=== PATIENT | male | born 1945 | race Caucasian/White ===

== ENCOUNTER 2024-10-03 11:00 | Outpatient (OUT) | payer MEDICARE, OTHER, SELFPAY ==
--- OUTSIDE RECORDS SUMMARY | 2024-10-03 11:06 | XMS_ITS | Clinical Summary ---
Author Organization [facility] Address [address] [place] [address] Care Team Providers Care Consumer Affairs Director Name Role Phone Unavailable Primary Care Provider Unavailabl e Allergies No known active allergies Medications ALPHAGAN P 0.1 % drop INSTILL 1 DROP INTO LEFT EYE THREE TIMES DAILY 04/10/2022 Active levothyroxine (SYNTHROID) 200 mcg tablet Take 200 mcg by mouth once daily. 03/24/2022 Active PARoxetine (PAXIL) 20 mg tablet Take 0.5 tablets by mouth once daily. 08/21/2017 Active busPIRone (BUSPAR) 5 mg tablet Take 5 mg by mouth. 04/23/2022 Active atorvastatin (LIPITOR) 10 mg tablet 10 mg. 05/08/2022 Active sertraline (ZOLOFT) 100 mg tablet Take 100 mg by mouth once daily. 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.Jan 17, 2020 Entered By: JOSEE DENISE Comment: left total knee arthroplasty 05/24/19 Calcification of coronary artery 04/21/2022 Overview (04/21/2022): Aug 28, 2017 Entered By: JOSEE DENISE Comment: CT finding October Entered By: JOSEE DENISE Comment: previous stress test negative, asymptomatic Encounter for fitting and adjustment of hearing aid 04/21/2022 Gallstones 04/21/2022 Overview (04/21/2022): Aug 28, 2017 Entered By: JOSEE DENISE Comment: asymptomatic, demonstrated radiographically October 2016 Gastroenteritis 04/21/2022 Generalized anxiety disorder 04/21/2022 Hard of hearing 04/21/2022 History of adenomatous polyp of colon 04/21/2022 Overview (04/21/2022): Aug 28, 2017 Entered By: JOSEE DENISE Comment: 04/23/15 History of repair of rotator cuff 04/21/2022 Overview (04/21/2022): Aug 28, 2017 Entered By: JOSEE DENISE Comment: bilateral procedures 2008 Prediabetes 04/21/2022 Overview (04/21/2022): Jan 11, 2020 Entered By: JOSEE DENISE Comment: A1c 6.22 December 2019 Vitamin D deficiency 04/21/2022 Dizziness and giddiness 09/19/2021 Hypothyroidism 09/19/2021 Class 2 obesity 09/19/2021 Depressive disorder 08/20/2021 Social History Tobacco Use Types Packs/Day Years Used Date Smoking Tobacco: Never Smokeless Tobacco: Never Tobacco Cessation:Counseling Given: Not Answered Area Deprivation Index Answer Date Oziel rded National Score (1-100), lower number is lower ri sk 34 01/30/2023 State Score (1-10), lower number is lower risk 1 01/30/2023 Data from: https://www.neighborhoodatlas.medicine.[facility].edu/. Last address used for calculation [address] 01/30/2023 Sex and Gender Information Value Date Recorded Sex Assigned at Not on file Legal Sex Male 5:15 PM EST Gender Identity Not on file Sexual Orientation Not on file Last Filed Vital Signs Vital Sign Reading Time Taken Comments Blood Pressure 154/89 04/15/2022 5:12 AM EST Pulse 89 04/15/2022 5:12 AM EST Temperature 36.8 C (98.2 F) 04/15/2022 5:12 AM EST Respiratory Rate 18 04/15/2022 5:12 AM EST Oxygen Saturation 99% 04/15/2022 5:12 AM EST Inhaled Oxygen Concentration - - Weight 108.9 kg (240 lb) 04/14/2022 5:50 PM EST Height - - Body Mass Index - - Plan of Treatment Health Maintenance Due Date Last Done Comments Annual PCP Team Chronic Dise ase Visit 01/06/1963 Hepatitis C Screening 01/06/1963 LDL Cholesterol 01/06/1964 DTaP,Tdap,Td Vaccine (1 - Tdap) 12/27/2016 7 RSV Vaccine (1 - 1-dose 75+ series) 2021 Covid-19 Vaccine (5 - 2023-2 5 season) 2023 01/23/2021, 06/16/2020, 05/19/2020, Additional history exists Advance Directive Discussion 03/23/2024 Medicare Advantage Annual We llness Visit 03/23/2024 Influenza Vaccine (#1) 2024 2, 12/21/2021, 01/23/2021, Additional history exists Diabetes Screening 04/14/2025 04/14/2022 Shingrix Vaccine Completed 03/30/2020, , 01/10/2020 Pneumococcal Vaccine: 50+ Completed 03/27/2022 Procedures Procedure Name Priority Date/Time Associated Diagnosis Comments BASIC METABOLIC PANEL STAT 04/14/2022 9:20 PM EST from Last 3 Months or Most Recently Relevant to Health Maintenance Results * (ABNORMAL) BASIC METABOLIC PNL (04/14/2022 9:20 PM EST) Glucose 123(H) 74 - 99 mg/dL 04/14/2022 9:50 PM EST [facility] Comment: The [place] Diabetes Association (ADA) provides guidance for cutoff values for fasting glucose and random glucose. The ADA defines fasting as no caloric intake for at least 8 hours. Fasting plasma glucose results between 100 to 125 mg/dL indicate increased risk for diabetes (prediabetes). Fasting plasma glucose results greater than or equal to 126 mg/dL meet the criteria for diagnosis of diabetes. In the absence of unequivocal hyperglycemia, results should be confirmed by repeat testing. In a patient with classic symptoms of hyperglycemia or hyperglycemic crisis, random plasma glucose results greater than or equal to 200 mg/dL meet the criteria for diagnosis of diabetes. Reference: Standards of Medical Care in Diabetes 2016, [place] Diabetes Association. Diabetes Care. 2016.39(Suppl 1). BUN 21 9 - 24 mg/dL 04/14/2022 9:50 PM EST [facility] Creatinine 1.01 0.73 - 1.22 mg/dL 04/14/2022 9:50 PM EST [facility] Sodium 138 136 - 144 mmol/L 04/14/2022 9:50 PM EST [facility] Potassium 3.8 3.7 - 5.1 mmol/L 04/14/2022 9:50 PM EST [facility] Chloride 102 97 - 105 mmol/L 04/14/2022 9:50 PM EST [facility] CO2 25 22 - 30 mmol/L 04/14/2022 9:50 PM EST [facility] Anion Gap 11 9 - 18 mmol/L 04/14/2022 9:50 PM EST [facility] Calcium, Total 9.3 8.5 - 10.2 mg/dL 04/14/2022 9:50 PM EST [facility] Estimated Glomerular Filtration Rate 77 >=60 mL/min/1.7 3m 04/14/2022 9:50 PM EST [facility] Comment:Estimated Glomerular Filtration Rate (eGFR) is calculated using the 2020 CKD-EPI creatinine equation. This equation utilizes serum creatinine, sex, and age as parameters. The creatinine assay has traceable calibration to isotope dilution- mass spectrometry. Refer to KDIGO guidelines for clinical interpretation. In patients with unstable renal function, e.g. those with acute kidney injury, the eGFR may not accurately reflect actual GFR. Blood BLOOD SPECIMEN / Unknown Venipuncture / Unknown 04/14/2022 9:20 PM EST 04/14/2022 9:30 PM EST us Ariane Lindsey PA-C LABORATORY Final Resul t [facility] [address] [address], from Last 3 Months or Most Recently Relevant to Health Maintenance Insurance [employer] MEDICARE ADVANTAGE O
--- OUTSIDE RECORDS SUMMARY | 2024-10-03 11:06 | XMS_ITS | Encounter Summary ---
Author Organization [facility] Address [address] [place] [address] Care Team Providers Care Sheep And Wheat Farmer Name Role Phone Unavailable Primary Care Provider Unavailabl e Source Comments In the event this information is protected by the Federal Confidentiality of Alcohol and Drug AbusePatient Records regulations: The Federal rules restrict any use of the information to criminally investigate or prosecute any alcohol or drug abuse patient.[facility] Encounter Details Date Type Department Care Team (Late st Contact Info) Description 04/14/2022 Ophth Exam Ophthalmology 2021 [facility] [place], [place] [phone] Melinda Burnette MD [address] [place] [id number] Social History Tobacco Use Types Packs/Day Years Used Date Smoking Tobacco: Never Assessed Area Deprivation Index Answer Date Oziel rded National Score (1-100), lower number is lower ri sk 53 04/15/2022 State Score (1-10), lower number is lower risk N ot on file 04/15/2022 Data from: https://www.neighborhoodatlas.medicine.[facility].edu/. Last address used for calculation [address] 04/15/2022 Sex and Gender Information Value Date Recorded Sex Assigned at Not on file Legal Sex Male 5:15 PM EST Gender Identity Not on file Sexual Orientation Not on file documented as of this encounter Plan of Treatment Not on file documented as of this encounter Visit Diagnoses Not on filedocumented in this encounter Additional Health Concerns Infection Onset Date Last Indicated Resolved Time COVID-19 Rule-Out 04/14/2022 04/14/2022 04/14/2022 10:50 PM EST documented as of this encounter
--- OUTSIDE RECORDS SUMMARY | 2024-10-03 11:06 | XMS_ITS | Clinical Summary ---
Author Organization [facility] Address [address] [place] [phone] Phone Care Team Providers Care Household Worker Name Role Phone Unavailable Primary Care Provider Unavailabl e Social History Tobacco Use Types Packs/Day Years Used Date Smoking Tobacco: Never Assessed Sex and Gender Information Value Date Recorded Sex Assigned at Not on file Legal Sex Male 11:15 PM EDT Gender Identity Not on file Sexual Orientation Not on file Last Filed Vital Signs Vital Sign Reading Time Taken Comments Blood Pressure 128/88 11/05/2023 4:40 PM EDT Pulse 60 11/05/2023 4:40 PM EDT Temperature 37 C (98.6 F) 11/05/2023 4:40 PM EDT Respiratory Rate 18 11/05/2023 4:40 PM EDT Oxygen Saturation 98% 11/05/2023 4:40 PM EDT Inhaled Oxygen Concentration - - Weight 116 kg (255 lb 1.2 oz) 11/05/2023 4:40 PM EDT Height 175.3 cm (5' 9 ) 11/05/2023 4:40 PM EDT Body Mass Index 37.67 11/05/2023 4:40 PM EDT Plan of Treatment Health Maintenance Due Date Last Done Comments Lipid Panel 1945 Yearly Adult Physical 1945 Hepatitis C Screening 01/06/1963 Zoster Vaccines (1 of 2) 01/06/1996 RSV High Risk: (Elderly (60+) or Population) (1 - 1-dose 75+ series) 2021 COVID-19 Vaccine (4 - season) 2023 01/23/2021, 06/16/2020, 04/24/2020 Influenza Vaccine (#1) 2024 , 02/18/2023, 02/05/2022, Additional history exists DTaP/Tdap/Td Vaccines (2 - Td or Tdap) 05/08/2033 05/08/2023 Pneumococcal Vaccine Completed 03/27/2022 HIB Vaccines Aged Out No longer eligi ble based on patient's age to complete this topic HPV Vaccines (No Doses Required) Completed Hepatitis A Vaccines Aged Out No long er eligible based on patient's age to complete this topic Hepatitis B Vaccines Aged Out No long er eligible based on patient's age to complete this topic IPV Vaccines Aged Out No longer eligi ble based on patient's age to complete this topic Meningococcal Vaccine Aged Out No tatiana lara eligible based on patient's age to complete this topic Rotavirus Vaccines Aged Out No longer eligible based on patient's age to complete this topic
--- NOTE | 2024-10-03 11:08 | ECG_ITS ---
[facility] Test Date: 2024-10-03 Pat Name: ALINA JARAMILLO Department: Room: - Gender: Male Hospice/Home Health Aide: : 1945 Requested By: NICOLE BUSCH Order Number: [id number] Reading MD: IRENE GIL Measurements Intervals [place] Rate: 67 P: 49 IA: 162 QRS: -18 QRSD: 87 T: 62 QT: 390 QTc: 413 Interpretive Statements SINUS RHYTHM WITH FREQUENT SUPRAVENTRICULAR PREMATURE COMPLEXES ABNORMAL RHYTHM ECG No previous ECG available for comparison Electronically Signed On 10-05-2024 13:22:27 EDT by IRENE GIL
--- NOTE | 2024-10-03 12:14 | PM.PRESUREVA ---
History of Present Illness History of Present Illness Chief complaint: BPH with Obstruction Narrative: Mr. 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 He is scheduled for scheduled cystoscopy with TURP on October 13, [address] Rosas he reports nocturia and weak urinary stream and urgency Review of Systems ROS Narrative REVIEW OF SYSTEMS: Negative except as stated in HPI, ten or more systems reviewed. 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 and has hearing loss and does wear hearing aids Constitutional: No fever, chills, weakness ENT: No sore throat or epistaxis, Cardiovascular: No edema, chest pain, palpitations, or activity intolerance Respiratory: No shortness of breath, cough, or wheezing Musculoskeletal: No joint pain or swelling Gastrointestinal: No abdominal pain, constipation, diarrhea, or vomiting Genitourinary: No dysuria or hematuria, complaints of nocturia and urgency with urination as well as weakened urinary stream Neurological: No numbness, tingling, weakness, or headache Psychiatric: No mood changes [facility] Medical History (Updated 10/03/24 @ 12:07 by Marta Painting) Sleep apnea ?G47.30 - Sleep apnea, unspecified (ICD-10) Constipation ?K59.00 - Constipation, unspecified (ICD-10) Depression ?F32.A - Depression, unspecified (ICD-10) Hypothyroidism ?E03.9 - Hypothyroidism, unspecified (ICD-10) Hyperlipidemia ?E78.5 - Hyperlipidemia, unspecified (ICD-10) History of rectal polyps ?Z87.19 - Personal history of other diseases of the digestive system (ICD-10) Gastroenteritis ?K52.9 - Noninfective gastroenteritis and colitis, unspecified (ICD-10) ALISON (generalized anxiety disorder) ?F41.1 - Generalized anxiety disorder (ICD-10) Dizziness ?R42 - Dizziness and giddiness (ICD-10) Diabetes 1.5, managed as type 2 ?E13.9 - Other specified diabetes mellitus without complications (ICD-10) 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 - Leukoplakia of penis (ICD-10) BPH loc w urin obs/LUTS ?N40.1 - Benign prostatic hyperplasia with lower urinary tract symptoms (ICD-10) Blindness of both eyes ?H54.3 - Unqualified visual loss, both eyes (ICD-10) Bleeding per rectum ?K62.5 - Hemorrhage of anus and rectum (ICD-10) Arthritis ?M19.90 - Unspecified osteoarthritis, unspecified site (ICD-10) Surgical History (Updated 10/03/24 @ 11:21 by Marta Painting) Hx of total knee replacement ?Z96.659 - Presence of unspecified artificial knee joint (ICD-10) S/P left rotator cuff repair ?Z98.890 - Other specified postprocedural states (ICD-10) History of carpal tunnel release of both wrists ?Z98.890 - Other specified postprocedural states (ICD-10) H/O cataract extraction ?Z98.49 - Cataract extraction status, unspecified eye (ICD-10) H/O colonoscopy ?Z98.890 - Other specified postprocedural states (ICD-10) Family History (Updated 10/03/24 @ 11:34 by Marta Painting) Other Family history of cancer Family history of diabetes mellitus Family history of heart disease Family history of hypertension Family history of myocardial infarction Family history of stroke Social History (Updated 10/03/24 @ 11:31 by Marta Painting) Within the past year, how often did you have a drink containing alcohol: monthly or less Smoking status: Never smoker Non-prescribed substance use: cannabis (any form) Non-prescribed substance use details: edibles THC / anxiety 10mg CBG Previous occupational history: retired Highest level of school completed/degree received: Associate degree: occupational, technical, vocational program Meds Home Medications and Allergies Home Medications ?Medication ?Instructions ?Recorded ?Confirmed ?Type buspirone 5 mg tablet 10 mg PO DAILY 10/03/24 10/03/24 History levothyroxine 200 mcg tablet 200 mcg PO DAILY 10/03/24 10/03/24 History (Synthroid) sertraline 25 mg tablet 100 mg PO DAILY 10/03/24 10/03/24 History tamsulosin 0.4 mg capsule 0.4 mg PO DAILY 10/03/24 10/03/24 History trazodone 50 mg tablet 50 mg PO HS 10/03/24 10/03/24 History Allergies Allergy/AdvReac Type Severity Reaction Status Date / Time No Known Drug Allergies Allergy Verified 10/03/24 11:14 Exam Narrative Exam Narrative: Constitutional: Awake, alert, comfortable, well-appearing, nontoxic, interactive, vital signs as charted Head: Normocephalic, atraumatic Eyes: Conjunctiva and lids normal to inspection, pupils nonreactive ENT: naris patent, posterior oropharynx clear, oral mucosa moist Neck: Supple, normal appearance, normal range of motion, no meningeal signs, no lymphadenopathy no carotid bruit Respiratory: No respiratory distress, breath sounds clear Cardiovascular: Regularly irregular without murmur gallop or rub Abdomen: Nontender, normal bowel sounds, soft, no CVA tenderness Musculoskeletal: Normal gait, no swelling or edema Skin: No rashes or induration, no lesions, only visible skin inspected Neuro: No neurological deficits, normal sensation Psychiatric: Oriented ?3, normal affect Assessment and Plan Assessment and Plan (1) BPH loc w urin obs/LUTS: Plan Cystoscopy/TURP is scheduled on October 13, [address] Rosas
[2024-10-03 12:40] LABS: Hematocrit 43.4 % (42.0-54.0); Hemoglobin 14.5 g/dL (14.0-18.0); Immature Granulocytes Abs Auto 0.03 10^3/uL (0.00-0.03); Immature Granulocytes Pct Auto 0.4 % (0.0-0.5); Lymphocytes Absolute Auto 1.0 10^3/uL (1.2-3.8); Mean Corpuscular HGB Conc 33.4 g/dL (29.9-35.2); Mean Corpuscular Hemoglobin 31.2 pg (25.9-34.0); Mean Corpuscular Volume 93.3 fL (80.0-94.0); Platelet Count 175 10^3/uL (150-450); Red Blood Count 4.65 10^6/uL (4.70-6.10); White Blood Count 7.7 10^3/uL (4.0-11.0)
[2024-10-03 13:07] LABS: Anion Gap 11.4; Blood Urea Nitrogen 24.0 mg/dL (7.0-18.0); Calcium 9.1 mg/dL (8.5-10.1); Carbon Dioxide 29.9 mmol/L (21.0-32.0); Chloride 106 mmol/L (98-107); Estimated GFR (African America >60 (>=60 mL/min/1.73m^2); Estimated GFR (Non-African Ame >60 (>=60 mL/min/1.73m^2); Glucose 133 mg/dL (74-106); Potassium 4.3 mmol/L (3.5-5.1); Sodium 143 mmol/L (136-145)
[2024-10-03 13:10] LABS: INR 1.01; Partial Thromboplastin Time 29.6 sec (22.3-36.2); Prothrombin Time 10.7 sec (9.0-11.6)
== END 2024-10-03 11:01 | disposition home or self-care (01) ==
PROVIDERS: PCP Family Medicine; Visit Provider Urology
DX: Z01.810 Encounter for preprocedural cardiovascular examination (principal); Z01.812 Encounter for preprocedural laboratory examination; Z01.818 Encounter for other preprocedural examination; N40.1 Benign prostatic hyperplasia with lower urinary tract symptoms
CPT/HCPCS: 80048; 85025; 85610; 85730; 93005; G0463

== ENCOUNTER 2024-10-13 10:37 | Day surgery (SDC) | payer MEDICARE, OTHER, SELFPAY ==
[2024-10-03 11:32] VITALS: BP 131/83; PULSE 61; TEMP 36.4; O2SAT 97; BMI 28.0
[2024-10-13] VITALS (19 sets, daily range): BP systolic 129–159; BP diastolic 70–98; PULSE 52–79; TEMP 36–36.7; O2SAT 91–99; BMI 36.7
--- OUTSIDE RECORDS SUMMARY | 2024-10-13 10:40 | XMS_ITS | Encounter Summary ---
Author Organization [facility] Address [address] [place] [address] Care Team Providers Care Research Quality Assurance Specialist Name Role Phone Unavailable Primary Care Provider Unavailabl e Source Comments In the event this information is protected by the Federal Confidentiality of Alcohol and Drug AbusePatient Records regulations: The Federal rules restrict any use of the information to criminally investigate or prosecute any alcohol or drug abuse patient.[facility] Encounter Details Date Type Department Care Team (Late st Contact Info) Description 04/14/2022 Ophth Exam Ophthalmology 2021 [facility] [place], [place] [id number] Melinda Burnette MD [address] [place] [id number] Social History Tobacco Use Types Packs/Day Years Used Date Smoking Tobacco: Never Assessed Area Deprivation Index Answer Date Oziel rded National Score (1-100), lower number is lower ri sk 53 04/15/2022 State Score (1-10), lower number is lower risk N ot on file 04/15/2022 Data from: https://www.neighborhoodatlas.medicine.[facility].edu/. Last address used for calculation [address] [...]
--- OUTSIDE RECORDS SUMMARY | 2024-10-13 10:40 | XMS_ITS | Clinical Summary ---
Author Organization [facility] Address [address] [place] [address] Care Team Providers Care Library Page Name Role Phone Unavailable Primary Care Provider [...] is lower risk 1 01/30/2023 Data from: https://www.neighborhoodatlas.medicine.[facility].edu/. Last address used for calculation [address] 01/30/2023 Sex and Gender Information [...] - 99 mg/dL 04/14/2022 9:50 PM EST [facility] Comment: The [place] Diabetes Association (ADA) provides guidance for cutoff [...] Standards of Medical Care in Diabetes 2016, [place] Diabetes Association. Diabetes Care. 2016.39(Suppl 1). BUN 21 9 - 24 mg/dL 04/14/2022 9:50 PM EST [facility] Creatinine 1.01 0.73 - 1.22 mg/dL 04/14/2022 9:50 PM EST [facility] Sodium 138 136 - 144 mmol/L 04/14/2022 9:50 PM EST [facility] Potassium 3.8 3.7 - 5.1 mmol/L 04/14/2022 9:50 PM EST [facility] Chloride 102 97 - 105 mmol/L 04/14/2022 9:50 PM EST [facility] CO2 25 22 - 30 mmol/L 04/14/2022 9:50 PM EST [facility] Anion Gap 11 9 - 18 mmol/L 04/14/2022 9:50 PM EST [facility] Calcium, Total 9.3 8.5 - 10.2 mg/dL 04/14/2022 9:50 PM EST [facility] Estimated Glomerular Filtration Rate 77 >=60 mL/min/1.7 3m 04/14/2022 9:50 PM EST [facility] Comment:Estimated Glomerular Filtration Rate (eGFR) is [...] Ariane Lindsey PA-C LABORATORY Final Resul t [facility] [address] [address], from Last 3 Months or Most Recently Relevant to Health Maintenance Insurance [employer] MEDICARE ADVANTAGE O
--- OUTSIDE RECORDS SUMMARY | 2024-10-13 10:40 | XMS_ITS | Clinical Summary ---
Author Organization [facility] Address [address] [place] [phone] Phone Care Team Providers Care Garnett Mechanic Name Role Phone Unavailable Primary Care Provider [...] - 1-dose 75+ series) 2021 COVID-19 Vaccine ( - season) 2023 02/24/2022, 01/23/2021, 06/16/2020, Additional history exists Influenza Vaccine (#1) 2024 , 02/18/2023, 02/05/2022, Additional history exists DTaP/Tdap/Td Vaccines (2 - Td or Tdap) 05/08/2033 05/08/2023 Pneumococcal Vaccine Completed 05/08/2022, 03/27/19 HIB Vaccines Aged Out No longer eligi ble based on patient's age to complete this topic HPV Vaccines Aged Out No longer eligi ble based on patient's age to complete this topic Hepatitis A Vaccines Aged Out No long [...]
[2024-10-13] MEDS: LEVOFLOXACIN 500 MG/100 ML-D5W PREMIX 100 MG IV (12:38)
[2024-10-13] MEDS: HYDROMORPHONE HCL 0.5 MG/0.5 ML SYRINGE IV (14:09)
--- NOTE | 2024-10-13 14:15 | PM.URSON ---
Urology Surgery Operative Note Operative Note Procedure Date: 10/13/24 Time Out Performed: yes Pre-op Diagnosis: BPH with LUTS refractory to medications Post-op Diagnosis: same as pre-op Procedures performed: 1. Cystoscopy. 2. Transurethral resection of the prostate. Anesthesia: GETA Primary Surgeon: Hayden Rosas Complications: None Estimated blood loss (mL): 20 Findings: High median bar Specimens: Prostate chips Drains: 22 [place] three-way coud? Morrissey catheter in the bladder taped to CBI and traction Indications for Procedures: This gentleman has bladder outlet obstructive symptoms that are refractory to oral medications. He he is obstructed endoscopically. He is desirous for a TURP. He has signed an informed consent after all risks were explained. Some of these include bleeding, infection, anesthesia, urinary incontinence both temporary and permanent, erectile dysfunction, retrograde ejaculation and the possible need for further operations to name a few. Detailed description of Procedure: The patient was brought to the operating room and placed on the operating room table in the supine position. SCDs were placed on the lower extremities and turned on and functioning during the entire case. Timeout was done by all parties in the room. We all agreed upon the patient's identification and the planned procedures for this patient. Genn. anesthesia was then administered. The patient was then repositioned into the modified dorsal lithotomy position. All pressure points were satisfactorily padded. Genitalia were sterilely prepped and draped in usual fashion. I started by passing a 26 [place] Olympus resectoscope with a standard bipolar loop electrode per urethra and into the bladder. He had a very high median bar. The ureteral orifices were marked with a loop electrode. I then uniformly resected his median bar down to the bladder neck level. I then resected posteriorly from the bladder neck to the Veru level. The left and right lateral lobes were then taken down in a similar fashion as was the anterior tissue. I then opened up the apex carefully. The resection bed was coagulated. All of the prostate chips were removed with the Ilich evacuator and sent for permanent sections. Upon completion, with the scope at the apex the prostatic urethra and bladder neck were now wide open. There were no chips remaining in the bladder and no bleeding. The scope was then removed. A 22 [place] three-way coud? Morrissey was placed in the bladder. It was manually irrigated with a Joel syringe to verify accurate placement and clear out any clots. 30 cc of fluid was placed in the balloon. It was taped to traction and CBI was started. It irrigated to a light pink color. The anesthetic was then reversed. He was then transferred to a [facility] bed and wheeled to the PACU in stable condition. Urinary Catheter Management Urinary Catheter Management 3-way Urethral: Cath placed during this visit: no
[2024-10-13] MEDS: 0.9 % SODIUM CHLORIDE 1,000 ML 80 ML IV (15:05)
[2024-10-13] MEDS: SOLIFENACIN SUCCINATE 10 MG TABLET PO (15:05)
[2024-10-13] MEDS: CEFAZOLIN SODIUM/DEXTROSE,ISO 1 GM/50 ML PREMIX IV (18:09)
[2024-10-13] MEDS: SODIUM CHLORIDE IRRIG SOLUTION 3,000 ML 3000 ML IRR ×3 (18:09→22:10)
[2024-10-14] VITALS: BP 109/68; PULSE 77; TEMP 36.6; O2SAT 92
[2024-10-14] MEDS: TRAZODONE HCL 50 MG TABLET 25 MG PO (00:02)
[2024-10-14] MEDS: CEFAZOLIN SODIUM/DEXTROSE,ISO 1 GM/50 ML PREMIX IV (00:02)
[2024-10-14] MEDS: SODIUM CHLORIDE IRRIG SOLUTION 3,000 ML 3000 ML IRR ×2 (00:03→02:17)
[2024-10-14 04:00] VITALS: BP 129/66; PULSE 62; TEMP 36.3; O2SAT 92
[2024-10-14] MEDS: LEVOTHYROXINE SODIUM 100 MCG TABLET 200 MCG PO (05:41)
[2024-10-14 07:39] VITALS: BP 111/71; PULSE 60; TEMP 36.4; O2SAT 94
[2024-10-14] MEDS: SOLIFENACIN SUCCINATE 10 MG TABLET PO (08:15)
[2024-10-14] MEDS: BUSPIRONE HCL 10 MG TABLET PO (08:15)
[2024-10-14] MEDS: CHOLECALCIFEROL (VITAMIN D3) 125 MCG/5,000 UNIT TABLET PO (08:15)
[2024-10-14] MEDS: SERTRALINE HCL 100 MG TABLET 200 MG PO (08:15)
== END 2024-10-14 12:22 | disposition home or self-care (01) ==
LOC: SURGOUT 14:12 → MS 14:51
PROVIDERS: PCP Family Medicine; Visit Provider Urology
PROC: (CPT 52601; principal; 2024-10-13 11:30)
DX: N40.1 Benign prostatic hyperplasia with lower urinary tract symptoms (principal); E03.9 Hypothyroidism, unspecified; E78.5 Hyperlipidemia, unspecified; F32.A Depression, unspecified; M19.90 Unspecified osteoarthritis, unspecified site; F41.9 Anxiety disorder, unspecified; H54.8 Legal blindness, as defined in USA; E11.9 Type 2 diabetes mellitus without complications; Z79.84 Long term (current) use of oral hypoglycemic drugs; G47.33 Obstructive sleep apnea (adult) (pediatric); Z96.659 Presence of unspecified artificial knee joint
CPT/HCPCS: 52601; 36415; 96365; J0690; J1100; J1171; J2250; J2405; J2704; J3010